=== PATIENT | female | born 1970 | race Two or more races ===

== ENCOUNTER 2021-06-25 17:49 | Inpatient (IN) | payer BC ==
[~2021-06-25] VITALS: Ht 157.5 cm; Wt 78.5 kg
[2021-06-25] MEDS ORDERED: KETOROLAC TROMETH 30 MG/ML 1ML VIAL IV ONE (18:30)
[2021-06-25 18:56] LABS: Urine Bacteria MANY /hpf (None Seen); Urine Blood TRACE /uL (Negative); Urine Specific Gravity 1.003 (1.001-1.035); Urine WBC 66 /hpf (0 - 5)
[2021-06-25 18:58] LABS: Basophils # (auto) 0 10 ^3/uL (0-0.2); Basophils % (auto) 0.3 % (0.0-2.0); Eosinophils # (auto) 0 10 ^3/uL (0-0.8); Eosinophils % (auto) 0.2 % (0.0-7.0); Hematocrit 42.6 % (36.0-46.0); Hemoglobin 14.7 g/dL (12.2-16.2); Lymphocytes % (auto) 6.5 % (10.0-50.0); Mean Corpuscular Hemoglobin 30.6 pg (28.0-32.0); Mean Corpuscular Hgb Conc. 34.5 g/dL (32.0-36.0); Mean Corpuscular Volume 88.7 fL (80.0-100.0); Monocytes # (auto) 0.4 10 ^3/uL (0-1.3); Monocytes % (auto) 2.6 % (0.0-12.0); Neutrophils # (auto) 13.6 10 ^3/uL (1.6-8.6); Neutrophils % (auto) 90.4 % (37.0-80.0); Red Cell Distribution Width 13.2 % (11.8-14.3)
[2021-06-25 19:19] LABS: Albumin 3.8 g/dL (3.4-5.0); Calcium 8.9 mg/dL (8.5-10.1); Potassium 3.4 mmol/L (3.5-5.1)
[2021-06-25 19:21] LABS: BUN/Creatinine Ratio 9.1
[2021-06-25 19:24] LABS: Bilirubin, Total 1.2 mg/dL (0.2-1.0); Total Protein 7.6 g/dL (6.4-8.2)
[2021-06-25] MEDS ORDERED: cefTRIAXone 1GM/50ML D5W 50 ML IV ONE (22:00)
[2021-06-25] MEDS ORDERED: NITROGLYCERIN 0.4 MG SL TAB SL PRN (23:00)
[2021-06-25] MEDS ORDERED: LACTATED RINGER'S 1,000 ML IV ONE (23:00)
[2021-06-25] MEDS ORDERED: MORPHINE SULFATE INJECTION 2 MG/2 ML SYRG IV PRN (23:00)
[2021-06-25] MEDS ORDERED: POTASSIUM CHL 20 Meq TABLET PO ONE (23:30)
[2021-06-26] MEDS ORDERED: DOCUSATE SOD 100 MG CAP PO PRN (00:15)
[2021-06-26] MEDS ORDERED: FAMOTIDINE (10MG/ML) 2ML VL IV ONE (00:15)
[2021-06-26] MEDS ORDERED: NITROGLYCERIN 0.4 MG SL TAB SL PRN (00:15)
[2021-06-26] MEDS ORDERED: MORPHINE SULFATE INJECTION 2 MG/2 ML SYRG IV PRN (00:15)
[2021-06-26] MEDS ORDERED: ALUM & MAG HYDROX-SIMETH LIQ(MAALOX) 30 ML PO PRN (00:15)
[2021-06-26] MEDS ORDERED: cefTRIAXone 1GM/50ML D5W 50 ML IV ONE (00:15)
[2021-06-26] MEDS ORDERED: LORazepam 0.5 MG TAB PO PRN (00:15)
[2021-06-26 02:47] LABS: INR 1.1 (0.9-1.15); Partial Thromboplastin Time 26.8 sec (23.6-33.0)
[2021-06-26 02:50] LABS: Cholesterol 188 mg/dL (< 200)
[2021-06-26 02:52] LABS: HDL Cholesterol 52 mg/dL (40-59); LDL Cholesterol 104 mg/dL (< 100); Triglycerides 136 mg/dL (< 150)
[2021-06-26] MEDS: MORPHINE SULFATE INJECTION 2 MG/2 ML SYRG IV PRN ×2 (06:52→11:53)
[2021-06-26] MEDS: ONDANSETRON HCL 4 MG/2 ML VIAL IV PRN ×2 (06:52→11:53)
[2021-06-26] MEDS: SODIUM CHLORIDE 0.9% 1,000 ML IV SCH ×2 (11:11→11:44)
[2021-06-26] MEDS: POTASSIUM CHL 20 Meq TABLET PO SCH (11:28)
[2021-06-26] MEDS: ENOXAPARIN SOD 40 MG/0.4 ML SYRINGE SC SCH (11:28)
[2021-06-26] MEDS: FAMOTIDINE (10MG/ML) 2ML VL IV SCH (11:29)
[2021-06-26] MEDS ORDERED: MEROPENEM 1GM IVPB 100 ML IV ONE (11:30)
[2021-06-26 13:07] LABS: Hepatitis A Ab IgM Negative; Hepatitis B Core IgM Negative; Hepatitis B Surface Antigen Negative (Negative); Hepatitis C Antibody Negative (Negative)
[2021-06-26] MEDS: ACETAMINOPHEN 325 MG TAB PO PRN (15:00)
[2021-06-26] MEDS: HYDROcodone-ACET 5/325MG TAB PO PRN (17:09)
[2021-06-26] MEDS ORDERED: CEFTRIAXONE SODIUM 2 GM in D5W 5% 50 ML IV SCH (22:00)
[2021-06-27] MEDS: ONDANSETRON HCL 4 MG/2 ML VIAL IV PRN ×4 (00:07→11:42)
[2021-06-27] MEDS: MEROPENEM 1GM IVPB 100 ML IV SCH ×4 (00:15→22:09)
[2021-06-27] MEDS: SODIUM CHLORIDE 0.9% 1,000 ML IV SCH ×2 (00:45)
[2021-06-27] MEDS: FAMOTIDINE (10MG/ML) 2ML VL IV SCH ×3 (00:46→22:08)
[2021-06-27 06:44] LABS: Basophils # (auto) 0 10 ^3/uL (0-0.2); Basophils % (auto) 0.3 % (0.0-2.0); Eosinophils # (auto) 0 10 ^3/uL (0-0.8); Eosinophils % (auto) 0.3 % (0.0-7.0); Hematocrit 36.3 % (36.0-46.0); Hemoglobin 12.4 g/dL (12.2-16.2); Lymphocytes % (auto) 9.3 % (10.0-50.0); Mean Corpuscular Hemoglobin 30.5 pg (28.0-32.0); Mean Corpuscular Hgb Conc. 34.2 g/dL (32.0-36.0); Mean Corpuscular Volume 89.2 fL (80.0-100.0); Monocytes # (auto) 0.7 10 ^3/uL (0-1.3); Monocytes % (auto) 6.2 % (0.0-12.0); Neutrophils # (auto) 9.3 10 ^3/uL (1.6-8.6); Neutrophils % (auto) 83.9 % (37.0-80.0); Red Blood Cells 4.07 10^6/uL (4.0-5.20); Red Cell Distribution Width 13.6 % (11.8-14.3)
[2021-06-27 06:58] LABS: BUN/Creatinine Ratio 20.8; Potassium 3.8 mmol/L (3.5-5.1)
[2021-06-27] MEDS: ENOXAPARIN SOD 40 MG/0.4 ML SYRINGE SC SCH (11:15)
[2021-06-27] MEDS: POTASSIUM CHL 20 Meq TABLET PO SCH (11:42)
[2021-06-27] MEDS: MORPHINE SULFATE INJECTION 2 MG/2 ML SYRG IV PRN ×2 (11:42→16:57)
[2021-06-27 16:58] VITALS: BP 140/50
[2021-06-27] MEDS: ACETAMINOPHEN 325 MG TAB PO PRN (16:58)
[2021-06-27 17:44] LABS: Urine Bacteria NONE SEEN /hpf (None Seen); Urine Blood 2+ /uL (Negative); Urine Mucus FEW (None Seen); Urine Specific Gravity 1.011 (1.001-1.035); Urine WBC 11 /hpf (0 - 5)
[2021-06-27 17:58] VITALS: BP 140/50
[2021-06-27 17:58] LABS: Amphetamine Screen, Urine NEGATIVE (NEGATIVE); Barbiturate Scree,Urine NEGATIVE (NEGATIVE); Benzodiazephine Screen, Urine NEGATIVE (NEGATIVE); Cannabinoid Screen, Urine NEGATIVE (NEGATIVE); Cocaine Screen, Urine NEGATIVE (NEGATIVE); Opiate Scree,Urine POSITIVE (NEGATIVE); Phencyclidine Screen, Urine NEGATIVE (NEGATIVE)
[2021-06-27 20:00] VITALS: BP 94/52
[2021-06-27 22:00] VITALS: BP 94/52
[2021-06-27] MEDS: HYDROcodone-ACET 5/325MG TAB PO PRN (22:33)
[2021-06-28] VITALS (7 sets, daily range): BP systolic 92–127; BP diastolic 52–77
[2021-06-28] MEDS: MEROPENEM 1GM IVPB 100 ML IV SCH ×2 (05:34→15:14)
[2021-06-28] MEDS: ACETAMINOPHEN 325 MG TAB PO PRN ×3 (07:45→21:35)
[2021-06-28] MEDS: FAMOTIDINE (10MG/ML) 2ML VL IV SCH ×2 (09:31→21:34)
[2021-06-28] MEDS: POTASSIUM CHL 20 Meq TABLET PO SCH (09:31)
[2021-06-28] MEDS: ENOXAPARIN SOD 40 MG/0.4 ML SYRINGE SC SCH (09:31)
[2021-06-28] MEDS: CIPROFLOXACIN HCL 500 MG TAB PO SCH (21:34)
[2021-06-29 05:00] VITALS: BP 118/71
[2021-06-29] MEDS: ACETAMINOPHEN 325 MG TAB PO PRN (06:48)
[2021-06-29 06:49] LABS: Basophils # (auto) 0 10 ^3/uL (0-0.2); Basophils % (auto) 0.7 % (0.0-2.0); Eosinophils # (auto) 0.1 10 ^3/uL (0-0.8); Eosinophils % (auto) 1.1 % (0.0-7.0); Hematocrit 39.7 % (36.0-46.0); Lymphocytes # (auto) 1.6 10 ^3/uL (0.4-5.4); Lymphocytes % (auto) 29.3 % (10.0-50.0); Mean Corpuscular Hemoglobin 31.5 pg (28.0-32.0); Mean Corpuscular Hgb Conc. 35.3 g/dL (32.0-36.0); Mean Corpuscular Volume 89.3 fL (80.0-100.0); Monocytes # (auto) 0.8 10 ^3/uL (0-1.3); Neutrophils % (auto) 54.9 % (37.0-80.0); Nucleated Red Blood Cells % 0.2 %; Red Blood Cells 4.44 10^6/uL (4.0-5.20); Red Cell Distribution Width 13.5 % (11.8-14.3); White Blood Cell 5.5 10^3/uL (4.4-10.8)
[2021-06-29 07:16] LABS: Calcium 8.7 mg/dL (8.5-10.1)
[2021-06-29 07:18] LABS: BUN/Creatinine Ratio 20.8
[2021-06-29] MEDS ORDERED: ACETAMINOPHEN 500 MG TAB PO PRN (08:00)
[2021-06-29 09:00] VITALS: BP 123/69
[2021-06-29] MEDS ORDERED: CIP500T PO (09:39)
[2021-06-29] MEDS: CIPROFLOXACIN HCL 500 MG TAB PO SCH (10:18)
[2021-06-29] MEDS: FAMOTIDINE (10MG/ML) 2ML VL IV SCH (10:18)
[2021-06-29] MEDS: POTASSIUM CHL 20 Meq TABLET PO SCH (10:18)
[2021-06-29] MEDS: ENOXAPARIN SOD 40 MG/0.4 ML SYRINGE SC SCH (10:19)
[2021-06-29 12:37] VITALS: BP 102/58
[2021-06-29 13:00] VITALS: BP 102/58
== END 2021-06-29 14:28 | disposition home or self-care (01) | DRG 872 ==
LOC: ER 17:49 → TELE 22:47 → TELE-CENTR 06-27 16:15
PROVIDERS: ADMIT Hospitalist; ATTEND Internal Medicine Pulmonary Disease
DX: A41.51 Sepsis due to Escherichia coli [E. coli] (principal); N10 Acute pyelonephritis; Z20.822 Contact with and (suspected) exposure to COVID-19; R65.20 Severe sepsis without septic shock; E66.9 Obesity, unspecified; E87.6 Hypokalemia; K76.0 Fatty (change of) liver, not elsewhere classified; N81.4 Uterovaginal prolapse, unspecified; Z79.899 Other long term (current) drug therapy; Z68.31 Body mass index [BMI] 31.0-31.9, adult; Z90.49 Acquired absence of other specified parts of digestive tract
CPT/HCPCS: 36415; 70450; 71046; 74176; 76700; 76856; 80048; 80053; 80061; 80074; 80307; 81001; 83036; 83605; 84484; 85025; 85379; 85610; 85730; 87040; 87077; 87086; 87088; 87186; 87426; 96365; 96366; 96375; G0378; J0696; J1885; J2185; J2405; J3490